=== PATIENT | male | born 1945 | race Native Hawaiian/Other Pacific Islander ===

== ENCOUNTER 2018-03-22 08:23 | Day surgery (SDC) | payer OTHER ==
[~2018-03-22] VITALS: Ht 30.5 cm; Wt 0.5 kg
== END 2018-03-22 11:45 | disposition home or self-care (01) ==
LOC: OR 08:23
PROC: 08933ZZ Drainage of Left Anterior Chamber, Percutaneous Approach (ICD-10-PCS; principal; 2018-03-22)
DX: H31.302 Unspecified choroidal hemorrhage, left eye (principal)
CPT/HCPCS: J2250